=== PATIENT | male | born 1970 | race Caucasian/White ===

== ENCOUNTER 2016-03-29 19:24 | Emergency (ER) | payer MEDICAID ==
[2016-03-29] MEDS ORDERED: LIDOCAINE/EPI 1% MDV 20 ML ONE (20:43)
[2016-03-29] MEDS ORDERED: ED CLINDAMYCIN PREMIX 50 ML IV ONE (21:15)
[2016-03-29] MEDS ORDERED: KETOROLAC 30 MG/ML VIAL ONE (21:40)
[2016-03-29] MEDS ORDERED: ONDANSETRON 4 MG VIAL ONE (21:40)
== END 2016-03-29 22:45 | disposition home or self-care (01) ==
LOC: ER 19:24
DX: L02.415 Cutaneous abscess of right lower limb (principal); Z87.891 Personal history of nicotine dependence; Z79.2 Long term (current) use of antibiotics
CPT/HCPCS: 36415; 80053; 83605; 85025; 87040; 96365; 96375

== ENCOUNTER 2016-04-06 18:11 | Emergency (ER) | payer MEDICAID ==
[2016-04-06] MEDS ORDERED: ONDANSETRON ODT 4 MG TAB ONE (19:32)
[2016-04-06] MEDS ORDERED: KETOROLAC 60 MG/2 ML VIAL IM ONE (19:33)
[2016-04-06] MEDS ORDERED: DILAUDID 1 MG/ML AMP ONE (19:33)
== END 2016-04-06 23:44 | disposition home or self-care (01) ==
LOC: ER 18:11
DX: G89.29 Other chronic pain (principal); M79.672 Pain in left foot; M79.671 Pain in right foot; Z77.29 Contact with and (suspected) exposure to other hazardous substances
CPT/HCPCS: 96372